=== PATIENT | male | born 1960 | race African-American/Black ===

== ENCOUNTER 2020-11-06 11:31 | Emergency (ER) | payer OTHER ==
[~2020-11-06] VITALS: Ht 188 cm; Wt 158.8 kg
[2020-11-06 11:42] VITALS: BP 126/67
--- NOTE | 2020-11-06 12:30 | NUR ---
covid 19 swab collected and sent to lab
--- NOTE | 2020-11-06 12:31 | NUR ---
Patient discharged to home in stable condition. Written and verbal after care instructions given. Patient verbalizes understanding of instruction.
== END 2020-11-06 12:31 | disposition home or self-care (01) ==
LOC: ER 11:35
DX: Z20.828 Contact with and (suspected) exposure to other viral communicable diseases (principal); J45.909 Unspecified asthma, uncomplicated; Z88.8 Allergy status to other drugs, medicaments and biological substances
CPT/HCPCS: 99283; C9803; U0003